=== PATIENT | female | born 1945 | race Caucasian/White ===

== ENCOUNTER 2020-05-04 00:38 | Inpatient (IN) | payer MEDICARE, BC ==
[2020-05-04 01:21] LABS: #Basophils 0.1 thou/uL (0.0-0.2); #Eosinphils 0.2 thou/uL (0.0-0.7); #Lymphocytes 1.5 thou/uL (1.20-3.40); #Monocytes 0.7 thou/uL (0.11-0.59); #Neutrophils 5.4 thou/uL (1.40-6.50); %Basophils 0.8 % (0.0-1.0); %Eosinophils 2.3 % (0.0-10.0); %Lymphocytes 18.5 % (21.0-51.0); %Monocytes 9.4 % (0.0-10.0); %Neutrophils 69.1 % (42.0-75.0); Hemoglobin 15.2 g/dL (12.0-16.0); Mean Corpuscular HGB CONC 32.7 g/dL (32.0-36.0); Mean Corpuscular Hemoglobin 31.5 pg (27.0-31.0); Mean Corpuscular Volume 96.4 fL (78.0-98.0); Mean Platelet Volume 8.8 fL (7.4-10.4); Platelet Count 195 thou/uL (130-400); RBC Distribution Width 11.4 % (11.5-14.5); Red Blood Cell (RBC) Count 4.83 mill/uL (4.20-5.40); White Blood Cell (WBC) Count 7.9 thou/uL (4.8-10.8)
[2020-05-04 01:39] LABS: ALT (SGPT) 15 U/L (8-55); AST (SGOT) 28 U/L (5-34); Albumin 4.4 g/dL (3.4-4.8); Alkaline Phosphatase 72 U/L (40-110); Anion Gap 12 mmol/L (10-20); BUN (Urea Nitrogen) 17 mg/dL (9.8-20.1); Bilirubin, Total 0.3 mg/dL (0.2-1.2); Calc. Creatinine Clearance 0 mL/min (70-130); Calcium 9.1 mg/dL (7.8-10.44); Carbon Dioxide 27 mmol/L (23-31); Chloride 103 mmol/L (98-107); Estimated GFR-MDRD 70; Globulin 3.4 g/dL (2.4-3.5); Glucose 109 mg/dL (83-110); Lipase 38 U/L (8-78); Potassium 4.8 mmol/L (3.5-5.1); Protein, Total 7.8 g/dL (6.0-8.3); Sodium 137 mmol/L (136-145)
[2020-05-04 02:04] LABS: Bilirubin Negative (Negative); Blood, Urine Negative (Negative); Clarity Turbid (Clear); Glucose, Urine (Dipstick) Normal (Negative); Ketone, Urine Negative (Negative); Leukocyte Negative Leu/uL (Negative); Nitrite Negative (Negative); Protein, Urine (Dipstick) Negative (Neg-Trace); Specific Gravity, Urine 1.018 (1.002-1.036); Urobilinogen Normal mg/dL (Less than 2)
[2020-05-04] MEDS ORDERED: Morphine 2 MG/ML SYRINGE ONE (02:07)
[2020-05-04] MEDS ORDERED: Ondansetron PF 4 MG/2 ML Vial ONE (02:07)
[2020-05-04] MEDS ORDERED: Benzocaine 20% Spray 60 ML CAN ONE (03:21)
[2020-05-04] MEDS ORDERED: Morphine 2 MG/ML VIAL SLOW IVP PRN ×2 (05:43→13:19)
[2020-05-04] MEDS ORDERED: Ondansetron PF 4 MG/2 ML Vial IVP PRN (05:44)
[2020-05-04] MEDS ORDERED: Ondansetron ODT 4 MG TAB SL PRN (05:44)
[2020-05-04] MEDS ORDERED: Sodium Chloride 0.9% 1,000 ML IV SCH (05:45)
[2020-05-04 06:09] VITALS: BMI 25.2
[2020-05-04] MEDS ORDERED: Ondansetron ODT 4 MG TAB PO PRN (07:41)
[2020-05-04] MEDS ORDERED: Acetaminophen 650 MG Suppository PR PRN (07:41)
[2020-05-04] MEDS ORDERED: Labetalol HCl 100 MG/20 ML VIAL SLOW IVP PRN (07:46)
[2020-05-04] MEDS ORDERED: Famotidine/PF 20 mg/2ml Vial SLOW IVP SCH (09:00)
--- NOTE | 2020-05-04 09:39 | CT ---
PRELIMINARY REPORT/[facility]/EMERGENCY AFTER HOURS PROCEDURE: EXAM: CT Abdomen and Pelvis with Intravenous Contrast CLINICAL HISTORY: PT STATES SHE AT DINNER AROUND 1999 AND FEELS LIKE SHE ATE TOO MUCH. PTS STATES HAVING PAIN THAT HAS INCREASINGLY GOT WORSE SINCE EATING. PT STATES THE PAIN STARTED IN EPIGASTRIC AND HAS STARTED GOING L OWER AND LOWER. PT STATES THE PAIN RADIATES A LITTLE BIT OUTWARD. TECHNIQUE: Axial computed tomography images of the abdomen and pelvis with intravenous contrast. CONTRAST: With; ISOVUE 370,100mL COMPARISON: None provided. FINDINGS: LUNG BASES: No basilar airspace consolidation or pleural effusion. LIVER: Unremarkable. GALLBLADDER AND BILE DUCTS: Unremarkable. No calcified stone. No ductal dilation. PANCREAS: Unremarkable. SPLEEN: Unremarkable. ADRENAL GLANDS: Unremarkable. KIDNEYS, URETERS, AND BLADDER: Unremarkable. No hydronephrosis or nephrolithiasis. No ureteral or bladder calculi. STOMACH AND BOWEL: Uncomplicated colonic diverticuli. Gastric lap band procedure is present in satisfactory position. Th ere are fluid-filled dilated loops of small bowel measuring upwards of 3 cm. Edematous small bowel lo op is present within the anterior midline pelvis representing transition point. Distal loops of ileum are decompressed. There is adjacent edema of mesentery. APPENDIX: The appendix is within normal limits. PERITONEUM: Minimal fluid within the cul-de-sac LYMPH NODES: No lymphadenopathy. REPRODUCTIVE: Involuted calcified fundal fibroid is present measuring 7 mm VASCULATURE: No aortic aneurysm. BONES: No fracture or suspicious osseous abnormality. ABDOMINAL WALL AND SOFT TISSUES: Unremarkable. IMPRESSION: Small bowel obstruction with point obstruction anterior midline abdomen with edematous loop of small bowel. ELECTRONICALLY SIGNED BY: Ivonne Solorzano MD May 04, 2020 2:31:04 AM CDT This report is intended for review by the ordering physician only, in accordance of law. If you recei ve this report in error, please call [facility] at [phone]. FINAL REPORT EMERGENCY AFTER HOURS CT ABDOMEN AND PELVIS WITH CONTRAST: FINDINGS/IMPRESSION: I agree with the findings and impression given in the preliminary report per [facility] physici an. There is distention of small bowel loops with an apparent transition point in the midline of the abdo men. This may be secondary to complete or partial small bowel obstruction. POS: EAA
[2020-05-04] MEDS: Dextrose 5 %-0.45 % NaCl 1,000 ML IV SCH ×3 (09:42→21:00)
[2020-05-04] MEDS: Labetalol HCl 100 MG/20 ML VIAL SLOW IVP SCH (09:42)
--- NOTE | 2020-05-04 11:37 | PDOC.HHP ---
Hospitalist HPI - History of Present Illness Abd pain History of Present Illness: 75 yof presents for epigastric and periumbilical pain starting yesterday evening after eating. She had no symptoms before eating dinner. Abd pain mainly over periumbilical and epigastric region. Moderate in intensity. No relieving factor. Worse with eating. Denies n/v/d, CP, fever, or urinary symptoms. No similar symptoms in the past. No recent travel. Hospitalist ROS - Review of Systems Constitutional: denies: fever, chills, sweats, weakness, malaise, other Eyes: denies: pain, vision change, conjunctivae inflammation, eyelid inflammation, redness, other Respiratory: denies: cough, dry, shortness of breath, hemoptysis, SOB with excertion, pleuritic pain, sputum, wheezing, other Cardiovascular: denies: chest pain, palpitations, orthopnea, paroxysmal noc. dyspnea, edema, light headedness, other Gastrointestinal: reports: abdominal pain. denies: nausea, vomiting, diarrhea, constipation, melena, hematochezia, other Genitourinary: denies: dysuria, frequency, incontinence, hematuria, retention, other Neurological: denies: weakness, numbness, incoordination, change in speech, confusion, seizures, other All other systems reviewed; all pertinent +/- noted in HPI/Subj - Medication Medications: HOME MEDS: Synthroid oral Sat May 04, 2020 00:59 SMILEY Lopez Jordan tablet : Strength - 88 mcg : ORAL Patient Dose: 1 tab(s) Oral once a day. metoprolol succinate Sat May 04, 2020 01:00 SMILEY Lopez Jordan tablet extended release 24 hr : Strength - 50 mg : ORAL Patient Dose: 1 tab(s) Oral once a day. buPROPion HCl Sat May 04, 2020 01:01 SMILEY Lopez Jordan tablet extended release 24 hr : Strength - 150 mg : ORAL Patient Dose: 1 tab(s) Oral once a day. Active Medications Generic Name Dose Route Start Last Admin Trade Name Freq PRN Reason Stop Dose Admin Dextrose/Sodium Chloride 1,000 mls @ 150 mls/hr 05/04/20 07:45 05/04/20 09:42 D5 1/2 Ns IV 1,000 mls .Q6H40M SCOTT Administration Labetalol HCl 10 mg 05/04/20 09:00 05/04/20 09:42 Normodyne SLOW IVP 10 mg BID SCOTT Administration Morphine Sulfate 2 mg 05/04/20 05:43 05/04/20 05:53 Morphine SLOW IVP 05/04/20 17:38 2 mg Q4H PRN Administration Pain Ondansetron HCl 4 mg 05/04/20 05:44 05/04/20 09:56 Zofran IVP 05/04/20 17:38 4 mg Q6H PRN Administration Nausea/Vomiting Pantoprazole Sodium 40 mg 05/04/20 09:45 05/04/20 09:59 Protonix PO 05/04/20 12:00 Not Given NOW [facility] Hospitalist History - Past Medical History Other Medical History: PAST MEDICAL HISTORY Tachyarrhythmia HTN Anxiety Hypothyroidism FEMALE SURGICAL HISTORY TONSILLECTOMY LAPBAND 2006 SOCIAL HISTORY Patient drinks every day, less than 5 drinks per day, Patient denies drug use, Patient is a former tobacco user, smoked cigarettes, Patient quit smoking more than 10 years ago. Smoking Status-Former Full code. DPOA - spouse FAMILY HISTORY No GI malignancy. Father had DC. No Premature CAD - Exam General Appearance: awake alert General - other findings: Mild distress due to abd pain Eye: PERRL, anicteric sclera ENT: normocephalic atraumatic, no oropharyngeal lesions, moist mucosa Neck: supple, symmetric, no JVD Heart: RRR, no gallops, no rubs, normal peripheral pulses Respiratory: no wheezes, no rales, no ronchi, normal chest expansion Gastrointestinal: soft, non-distended, no guarding, no rigidity, tender to palpation (periumbilical) Gastrointestinal - other findings: hyperactive BS Extremities: no cyanosis, no clubbing, no edema Skin: normal turgor, no lesions Neurological: normal sensation to touch, no weakness, no focal deficits Musculoskeletal: normal tone, normal strength Psychiatric: normal affect, A&O x 3 Hospitalist Results - Labs Result Diagrams: 05/04/20 01:10 05/04/20 01:10 Lab results: WBC 7.9 thou/uL (4.8-10.8) 05/04/20 01:10 Hgb 15.2 g/dL (12.0-16.0) 05/04/20 01:10 Hct 46.5 % (36.0-47.0) 05/04/20 01:10 MCV 96.4 fL (78.0-98.0) 05/04/20 01:10 Plt Count 195 thou/uL (130-400) 05/04/20 01:10 Neutrophils % 69.1 % (42.0-75.0) 05/04/20 01:10 Sodium 137 mmol/L (136-145) 05/04/20 01:10 Potassium 4.8 mmol/L (3.5-5.1) 05/04/20 01:10 Chloride 103 mmol/L (98-107) 05/04/20 01:10 Carbon Dioxide 27 mmol/L (23-31) 05/04/20 01:10 BUN 17 mg/dL (9.8-20.1) 05/04/20 01:10 Creatinine 0.80 mg/dL (0.6-1.1) 05/04/20 01:10 Glucose 109 mg/dL (83-110) 05/04/20 01:10 Calcium 9.1 mg/dL (7.8-10.44) 05/04/20 01:10 Total Bilirubin 0.3 mg/dL (0.2-1.2) 05/04/20 01:10 AST 28 U/L (5-34) 05/04/20 01:10 ALT 15 U/L (8-55) 05/04/20 01:10 Alkaline Phosphatase 72 U/L (40-110) 05/04/20 01:10 Serum Total Protein 7.8 g/dL (6.0-8.3) 05/04/20 01:10 Albumin 4.4 g/dL (3.4-4.8) 05/04/20 01:10 Lipase 38 U/L (8-78) 05/04/20 01:10 Urine Ketones Negative mg/dL (Negative) 05/04/20 01:14 Urine Blood Negative (Negative) 05/04/20 01:14 Urine Nitrite Negative (Negative) 05/04/20 01:14 Ur Leukocyte Esterase Negative Jaida/uL (Negative) 05/04/20 01:14 - Radiology Interpretation CT scan - abdomen Status: image reviewed by me Additional Comment: Small bowel obstruction with transition point in anterior midline abd. Hospitalist H&P A/P - Plan Plan: SBO Tachyarrythmia h/o Lap band Chronic alcohol use HTN Anxiety Hypothyroidism PLAN: NG tube suction NPO IVF IV Morphine for pain control Gen surg consult Hold PO meds IV Labetalol 10 mg BID until tolerating PO Ambulate Monitor electrolytes resume Levothyroxine and anxiety meds when tolerating PO Add Thiamine/Folic acid/MVM
[2020-05-04] MEDS ORDERED: Iopamidol-370 76% 500 ML 1 ML ONE (13:20)
[2020-05-04] MEDS ORDERED: MD-Gastroview 120 ML BOT ONE (13:30)
[2020-05-04] MEDS: Morphine 2 MG/ML VIAL SLOW IVP PRN ×4 (15:04→22:10)
--- NOTE | 2020-05-04 15:58 | RAD ---
EXAM: Small bowel follow-through HISTORY: Small bowel obstruction COMPARISON: None FINDINGS: A Gastrografin small bowel follow-through was performed. The small bowel loops are dilated. There is significant delay in passage of the contrast through the small bowel loops and no contrast was seen in the right colon at 5 hours. IMPRESSION: Dilated loops of small bowel without passage in the right colon may be consistent with a complete small bowel obstruction.
[2020-05-04 18:23] LABS: Lactic Acid 1.9 mmol/L (0.5-2.2)
--- NOTE | 2020-05-04 20:18 | CON ---
DATE OF CONSULTATION: 05/04/2020 REQUESTING PHYSICIAN: Juany Franco MD. HISTORY OF PRESENT ILLNESS: Ms. Perkins is a 75-year-old woman who was in her usual state of health up until yesterday evening when she developed a sudden onset epigastric to periumbilical abdominal pain shortly after eating. The pain started at approximately 1900 hours and intensified by 2200 hours. As a result, She presented to the emergency department near midnight after failure of the pain to resolve with [id number] remedies. The patient endorses no nausea or vomiting. She had a bowel movement earlier in the evening prior to onset of abdominal pain. She denies any fevers or chills. She has never experienced pain like this in the past. She, however, recalls that after overeating since her weight loss surgery she will experience occasional reflux, but never pain as intense as what brought her to the emergency department. PAST MEDICAL HISTORY: Significant for: 1. Hypothyroidism. 2. Essential hypertension. 3. Chronic anxiety disorder. SURGICAL HISTORY: Pertinent for: 1. Childhood tonsillectomy and adenoidectomy. 2. Lap band in 2006 for weight loss. SOCIAL HISTORY: She lives independently. She denies any cigarette smoking or illicit drug abuse. She admits to occasional intake of ethanol in moderate amount. FAMILY HISTORY: Noncontributory for this patient's age. PREHOSPITALIZATION MEDICATIONS: Includes: 1. Bupropion 150 mg p.o. daily. 2. Levothyroxine 88 mcg p.o. daily. 3. Metoprolol succinate 50 mg p.o. daily. ALLERGIES: THE PATIENT DENIES ANY KNOWN DRUG ALLERGIES. REVIEW OF SYSTEMS: Ten-point review of systems essentially unremarkable except as stated in past medical history and chief complaint. PHYSICAL EXAMINATION: GENERAL: A 75-year-old normally developed woman who is otherwise coherent and interactive, appears stated age. The patient is alert and oriented x3, appears to be in no acute distress at the time of my evaluation. VITAL SIGNS: This morning include blood pressure 154/85, pulse 65, respiratory rate is 16, temperature 97.5 degrees Fahrenheit, and oxygen saturation 94% on room air. HEENT: Normocephalic and atraumatic. She has no jugular venous distention noted. HEART: Reveals regular rate and rhythm. No murmurs or gallops auscultated. LUNGS: Clear to auscultation bilaterally. Her breathing is regular and nonlabored. ABDOMEN: Soft with diffuse tenderness to palpation. She has no rebound tenderness present. She does, however, have hyperactive bowel sounds auscultated in all 4 quadrants. Liver and spleen otherwise nonpalpable below costal margin. NEUROLOGIC: No focal deficits present. LABORATORY FINDINGS: Today include a CBC with 7900 white blood cells, hemoglobin and hematocrit 15.2 and 46.5 respectively, and platelet count is 195,000. Metabolic profile: Sodium 137, potassium 4.8, chloride is 103, bicarb is 27, BUN 17, creatinine 0.80, and glucose is 109. Total bilirubin 0.3, AST and ALT normal at 28 and 15 respectively, and serum lipase is also normal at 38. I have personally reviewed the CT scan of the abdomen and pelvis, which was obtained early this morning, which confirms an uncomplicated gastric lap band procedure. The band appears to be in satisfactory position. There are fluid-filled dilated loops of small bowel, transition point appears to be in the distal jejunum/proximal ileum as it appears the distal ileal loops decompressed. There is, however, gas in the colon and rectum. IMPRESSIONS: 1. Acute abdominal pain with radiographic evidence of partial small-bowel obstruction. 2. Status post lap band procedure with no apparent complications. PLAN: Plan includes small-bowel follow-through to better define the anatomy of the obstruction. There is no acute surgical indication for this patient at this time; however, for failure of conservative management, we will consider diagnostic laparoscopy especially if indicated by the small-bowel follow-through or clinical presentation. Above findings and plan have been discussed with the patient at bedside and with her daughter who called in during my visit. They both indicated understanding information given. I have answered their questions. Thank you again, Dr. Franco, for allowing me the opportunity to participate in care of this patient. Job ID: [id number]
[2020-05-04] MEDS ORDERED: Enoxaparin Sodium 40 MG/0.4 ML SYRINGE SC SCH (21:00)
[2020-05-04] MEDS: Ondansetron PF 4 MG/2 ML Vial IVP PRN (22:16)
--- NOTE | 2020-05-05 03:51 | PRG ---
DATE OF SERVICE: 05/04/2020 SUBJECTIVE: The patient was seen this evening during rounds. She was sitting up in bed, resting comfortably, asleep with no signs of acute distress. NG tube had bilious output in canister. She is status post small bowel follow-through with what appears to be a complete small bowel obstruction. Her pain is well controlled now. OBJECTIVE: VITAL SIGNS: Temperature 98, pulse 86, respirations 16, oxygen saturation 92% on room air, blood pressure 121/78. GENERAL: Well-appearing elderly female, sitting up in bed, asleep with no signs of acute distress. PULMONARY: Equal chest rise and fall. No signs of acute respiratory distress. ASSESSMENT: 1. Small bowel obstruction, now with improving symptoms. 2. History of hypertension, hypothyroidism, depression, and status post lap band surgery. PLAN: Continue NG tube to low intermittent wall suction. Continue the patient on IV fluids. Dr. Quinn to speak with Dr. Minor tomorrow for possibly taking over this case as the patient is requesting removal of her lap band. Trauma Surgery will re-evaluate in the morning. We will also complete an abdominal x-ray to see if the contrast from the small bowel follow-through has eventually made it into the colon overnight. Job ID: [id number]
[2020-05-05] MEDS: Dextrose 5 %-0.45 % NaCl 1,000 ML IV SCH (04:00)
[2020-05-05] MEDS: Morphine 2 MG/ML VIAL SLOW IVP PRN ×3 (04:18→19:13)
[2020-05-05] MEDS: Ondansetron PF 4 MG/2 ML Vial IVP PRN (04:22)
[2020-05-05 05:38] LABS: #Lymphocytes 0.8 thou/uL (1.20-3.40); #Monocytes 1.2 thou/uL (0.11-0.59); #Neutrophils 13.7 thou/uL (1.40-6.50); %Basophils 0.1 % (0.0-1.0); %Eosinophils 0.1 % (0.0-10.0); %Lymphocytes 5.2 % (21.0-51.0); %Monocytes 7.9 % (0.0-10.0); %Neutrophils 86.8 % (42.0-75.0); Mean Corpuscular HGB CONC 32.6 g/dL (32.0-36.0); Mean Corpuscular Hemoglobin 32.3 pg (27.0-31.0); Mean Corpuscular Volume 98.9 fL (78.0-98.0); Mean Platelet Volume 8.4 fL (7.4-10.4); Platelet Count 246 thou/uL (130-400); RBC Distribution Width 11.6 % (11.5-14.5); Red Blood Cell (RBC) Count 5.57 mill/uL (4.20-5.40); White Blood Cell (WBC) Count 15.8 thou/uL (4.8-10.8)
[2020-05-05 05:59] LABS: Lactic Acid 1.8 mmol/L (0.5-2.2)
[2020-05-05] MEDS ORDERED: Levothyroxine Sodium 88 MCG TAB PO SCH (06:00)
[2020-05-05 06:02] LABS: ALT (SGPT) 10 U/L (8-55); AST (SGOT) 12 U/L (5-34); Albumin 3.8 g/dL (3.4-4.8); Alkaline Phosphatase 65 U/L (40-110); Anion Gap 13 mmol/L (10-20); BUN (Urea Nitrogen) 20 mg/dL (9.8-20.1); Bilirubin, Total 0.5 mg/dL (0.2-1.2); Calc. Creatinine Clearance 66 mL/min (70-130); Calcium 8.7 mg/dL (7.8-10.44); Carbon Dioxide 24 mmol/L (23-31); Chloride 105 mmol/L (98-107); Estimated GFR-MDRD 69; Globulin 2.8 g/dL (2.4-3.5); Glucose 166 mg/dL (83-110); Magnesium 2.2 mg/dL (1.6-2.6); Phosphorus 4.2 mg/dL (2.3-4.7); Potassium 3.8 mmol/L (3.5-5.1); Protein, Total 6.6 g/dL (6.0-8.3); Sodium 138 mmol/L (136-145)
[2020-05-05] MEDS ORDERED: Sodium Chloride 0.9% 1,000 ML IV SCH (07:45)
[2020-05-05] MEDS: D5 1/2 NS w/10 mEq KCl 1,000 ML/1,000 ML BAG IV SCH ×3 (08:31→22:26)
[2020-05-05] MEDS: Pantoprazole 40 MG VIAL IVP SCH ×2 (08:33→20:10)
[2020-05-05] MEDS: Multivit, Therapeutic 1 TAB PO SCH (08:33)
[2020-05-05] MEDS: Labetalol HCl 100 MG/20 ML VIAL SLOW IVP SCH ×2 (08:34→20:10)
[2020-05-05] MEDS ORDERED: Bupropion 150 MG XL TAB PO SCH (09:00)
[2020-05-05] MEDS ORDERED: Thiamine 100 MG TAB PO SCH (09:00)
[2020-05-05] MEDS ORDERED: Folic Acid 1 MG TAB PO SCH (09:00)
--- NOTE | 2020-05-05 09:51 | RAD ---
EXAM: Single view of the abdomen HISTORY: Small bowel obstruction COMPARISON: Small bowel follow-through 05/04/2020 FINDINGS: Single view of the abdomen shows contrast retained within dilated loops of small bowel. Thi s does not appear to have yet reached the colon.. No suspicious calcifications are seen. The bones are unremarkable. A gastric band is seen in the upper abdomen. IMPRESSION: Small bowel obstruction
[2020-05-05] MEDS ORDERED: Lidocaine 1% PF 5 ML VIAL ONE (09:56)
[2020-05-05] MEDS ORDERED: PHENYLEPHRINE-NS 100 MCG/ML 10 ML SYRINGE ONE (09:56)
[2020-05-05] MEDS ORDERED: PROPOFOL 200 MG/20 ML VIAL ONE (09:56)
[2020-05-05] MEDS ORDERED: Succinylcholine Chloride 20 MG/ML 10 ml SYRINGE FS ONE (09:56)
[2020-05-05] MEDS ORDERED: Rocuronium Bromide 10 MG/ML (10ML VIAL) ONE (09:56)
[2020-05-05] MEDS ORDERED: Glycopyrrolate 0.2 MG/ML 5 ML SYRINGE ONE (09:56)
--- NOTE | 2020-05-05 10:11 | PDOC.GSCN ---
Surgery Consult: HPI - Consult details Date: 05/05/20 Time: 10:11 Reason for consult: abdominal pain History of present illness: 75yo female with a history of obesity and laparoscopic adjustable gastric band placement presents with one day history of abdominal pain. Onset of pain was yesterday, mid-morning. Pain is described as "bloating" and "sharp" consistent with colic like pain. Denies nausea, vomiting, or change in bowel habits. Denies previsous episodes. Band placed in [place] 2006. Pre-op weight 180lbs, now around 150lbs. Complicated by severe reflux symptoms, so band has been unfilled since soon after placement. Admitted by hospitalist service and seen by EGS. - Review of Systems Constitutional: denies: fever, chills, sweats, weakness, malaise, other Eyes: denies: pain, vision change, conjunctivae inflammation, eyelid inflammation, redness, other Respiratory: denies: cough, dry, shortness of breath, hemoptysis, SOB with excertion, pleuritic pain, sputum, wheezing, other Cardiovascular: history of tachycardia Gastrointestinal: positive per HPI Genitourinary: denies: dysuria, frequency, incontinence, hematuria, retention, other Neurological: denies: weakness, numbness, incoordination, change in speech, confusion, seizures, other All other systems reviewed; all pertinent +/- noted in HPI/Subj - Medication HOME MEDS: Synthroid oral Sat May 04, 2020 00:59 SMILEY Lopez Jordan tablet : Strength - 88 mcg : ORAL Patient Dose: 1 tab(s) Oral once a day. metoprolol succinate [facility] May 04, 2020 01:00 SMILEY Lopez Jordan tablet extended release 24 hr : Strength - 50 mg : ORAL Patient Dose: 1 tab(s) Oral once a day. buPROPion HCl [facility] May 04, 2020 01:01 SMILEY Lopez Jordan tablet extended release 24 hr : Strength - 150 mg : ORAL Patient Dose: 1 tab(s) Oral once a day. - Past Medical History Tachyarrhythmia HTN Anxiety Hypothyroidism Laparoscopic adjustable gastric band 2006 ([place]) tonsillectomy laparoscopic tubal ligation SOCIAL HISTORY Patient drinks every day, less than 5 drinks per day, Patient denies drug use, Patient is a former tobacco user, smoked cigarettes, Patient quit smoking more than 10 years ago. Smoking Status-Former Full code. DPOA - spouse FAMILY HISTORY paternal heart disease (AMI) - Exam General Appearance: awake alert, no acute distress Eye: PERRL, anicteric sclera ENT: normocephalic atraumatic, no oropharyngeal lesions, moist mucosa Neck: supple, symmetric, no JVD Heart: RRR, no gallops, no rubs, normal peripheral pulses Respiratory: no wheezes, no rales, no ronchi, normal chest expansion Gastrointestinal: soft, moderately-distended, no guarding, no rigidity, tender to palpation (mild), well healed laparoscopic incisions, band port LUQ Extremities: no cyanosis, no clubbing, no edema Skin: normal turgor, no lesions Neurological: normal sensation to touch, no weakness, no focal deficits Musculoskeletal: normal tone, normal strength Psychiatric: normal affect, A&O x 3 Surgery Consult: Exam - Vital signs Vital signs: Vital Signs - Most Recent Temp Pulse Resp BP Pulse Ox 97.9 F 76 18 129/78 94 L 05/05/20 07:38 05/05/20 08:34 05/05/20 07:38 05/05/20 08:34 05/05/20 07:38 Surgery Consult: Meds - Medications Medications: Current Medications Acetaminophen (Tylenol) 650 mg MA Q4H PRN PRN Reason: Headache/Fever/Mild Pain (1-3) Acetaminophen (Tylenol) 650 mg PO Q4H PRN PRN Reason: Headache/Fever/Mild Pain (1-3) Hydrocodone Bitart/Acetaminophen ([place] 5/325) 1 tab PO Q6H PRN PRN Reason: Moderate Pain (4-6) Bupropion HCl (Wellbutrin Xl) 150 mg PO DAILY [facility] Last Admin: 05/05/20 08:32 Dose: 150 mg Enoxaparin Sodium (Lovenox) 40 mg SC 2100 [facility] Last Admin: 05/04/20 20:07 Dose: 40 mg Folic Acid (Folvite) 1 mg PO DAILY [facility] Last Admin: 05/05/20 08:33 Dose: 1 mg Potassium Chloride/Dextrose/Sod Cl (D5 1/2 Ns W/10 Meq Kcl) 1,000 ml in 1,000 mls @ 150 mls/hr IV .Q6H40M [facility] Last Admin: 05/05/20 08:31 Dose: 1,000 mls Labetalol HCl (Normodyne) 10 mg SLOW IVP BID [facility] Last Admin: 05/05/20 08:34 Dose: 10 mg Labetalol HCl (Normodyne) 10 mg SLOW IVP Q4H PRN PRN Reason: Systolic BP > 180 Morphine Sulfate (Morphine) 2 mg SLOW IVP Q2H PRN PRN Reason: Severe Pain (7-10) Stop: 05/06/20 13:20 Last Admin: 05/05/20 07:34 Dose: 2 mg Multivitamins (Theragran) 1 tab PO DAILY [facility] Last Admin: 05/05/20 08:33 Dose: 1 tab Ondansetron HCl (Zofran Odt) 4 mg PO Q6H PRN PRN Reason: Nausea/Vomiting Ondansetron HCl (Zofran) 4 mg IVP Q6H PRN PRN Reason: Nausea/Vomiting Last Admin: 05/05/20 04:22 Dose: 4 mg Pantoprazole Sodium (Protonix) 40 mg IVP Q12HR [facility] Last Admin: 05/05/20 08:33 Dose: 40 mg Sodium Chloride (Flush - Normal Saline) 10 ml IVF PRN PRN PRN Reason: Saline Flush Thiamine HCl (Thiamine) 100 mg PO DAILY [facility] Last Admin: 05/05/20 08:33 Dose: 100 mg - Allergies Allergies/Adverse Reactions: Allergies Allergy/AdvReac Type Severity Reaction Status Date / Time No Known Drug Allergies Allergy Verified 05/04/20 06:03 Surgery Consult: Results - Labs Result Diagrams: 05/05/20 05:21 05/05/20 05:21 Lab results: Laboratory Results WBC 15.8 thou/uL (4.8-10.8) H 05/05/20 05:21 RBC 5.57 mill/uL (4.20-5.40) H 05/05/20 05:21 Hgb 18.0 g/dL (12.0-16.0) H 05/05/20 05:21 Hct 55.0 % (36.0-47.0) H 05/05/20 05:21 MCV 98.9 fL (78.0-98.0) H 05/05/20 05:21 MCH 32.3 pg (27.0-31.0) H 05/05/20 05:21 MCHC 32.6 g/dL (32.0-36.0) 05/05/20 05:21 RDW 11.6 % (11.5-14.5) 05/05/20 05:21 Plt Count 246 thou/uL (130-400) 05/05/20 05:21 MPV 8.4 fL (7.4-10.4) 05/05/20 05:21 Neutrophils % 86.8 % (42.0-75.0) H 05/05/20 05:21 Lymphocytes % 5.2 % (21.0-51.0) L 05/05/20 05:21 Monocytes % 7.9 % (0.0-10.0) 05/05/20 05:21 Eosinophils % 0.1 % (0.0-10.0) 05/05/20 05:21 Basophils % 0.1 % (0.0-1.0) 05/05/20 05:21 Neutrophils # 13.7 thou/uL (1.40-6.50) H 05/05/20 05:21 Lymphocytes # 0.8 thou/uL (1.20-3.40) L 05/05/20 05:21 Monocytes # 1.2 thou/uL (0.11-0.59) H 05/05/20 05:21 Eosinophils # 0.0 thou/uL (0.0-0.7) 05/05/20 05:21 Basophils # 0.0 thou/uL (0.0-0.2) 05/05/20 05:21 Sodium 138 mmol/L (136-145) 05/05/20 05:21 Potassium 3.8 mmol/L (3.5-5.1) 05/05/20 05:21 Chloride 105 mmol/L (98-107) 05/05/20 05:21 Carbon Dioxide 24 mmol/L (23-31) 05/05/20 05:21 Anion Gap 13 mmol/L (10-20) 05/05/20 05:21 BUN 20 mg/dL (9.8-20.1) 05/05/20 05:21 Creatinine 0.81 mg/dL (0.6-1.1) 05/05/20 05:21 Estimated GFR (MDRD) 69 05/05/20 05:21 Glucose 166 mg/dL (83-110) H 05/05/20 05:21 Lactic Acid 1.8 mmol/L (0.5-2.2) 05/05/20 05:21 Calcium 8.7 mg/dL (7.8-10.44) 05/05/20 05:21 Phosphorus 4.2 mg/dL (2.3-4.7) 05/05/20 05:21 Magnesium 2.2 mg/dL (1.6-2.6) 05/05/20 05:21 Total Bilirubin 0.5 mg/dL (0.2-1.2) 05/05/20 05:21 AST 12 U/L (5-34) 05/05/20 05:21 ALT 10 U/L (8-55) 05/05/20 05:21 Alkaline Phosphatase 65 U/L (40-110) 05/05/20 05:21 Serum Total Protein 6.6 g/dL (6.0-8.3) 05/05/20 05:21 Albumin 3.8 g/dL (3.4-4.8) 05/05/20 05:21 Globulin 2.8 g/dL (2.4-3.5) 05/05/20 05:21 Albumin/Globulin Ratio 1.4 g/dL (1.2-2.2) 05/05/20 05:21 Lipase 38 U/L (8-78) 05/04/20 01:10 Urine Color Light-Yellow (Yellow) 05/04/20 01:14 Urine Clarity Turbid (Clear) A 05/04/20 01:14 Urine pH 7.0 (5.0-9.0) 05/04/20 01:14 Ur Specific [place] 1.018 (1.002-1.036) 05/04/20 01:14 Urine Protein Negative mg/dL (Neg-Trace) 05/04/20 01:14 Urine Glucose (UA) Normal mg/dL (Negative) 05/04/20 01:14 Urine Ketones Negative mg/dL (Negative) 05/04/20 01:14 Urine Blood Negative (Negative) 05/04/20 01:14 Urine Nitrite Negative (Negative) 05/04/20 01:14 Urine Bilirubin Negative (Negative) 05/04/20 01:14 Urine Urobilinogen Normal mg/dL (Less than 2) 05/04/20 01:14 Ur Leukocyte Esterase Negative Jaida/uL (Negative) 05/04/20 01:14 - Radiology Interpretation CT scan - abdomen Status: image reviewed by me Additional comments: UGI and follow up KUB reviewed by me. Demonstrates dilated small bowel loops without passage of contrast into colon concerning for high grade obstruction vs. closed loop obstruction. Surgery Consult: A/P - Problem (1) Small bowel obstruction Current Visit: Yes Code(s): K56.609 - UNSP INTESTNL OBST, UNSP TO PARTIAL VERSUS COMPLETE OBST Status: Acute (2) History of adjustable gastric banding Current Visit: Yes Code(s): Z98.84 - BARIATRIC SURGERY STATUS Status: Acute - Plan Plan: 75yo female with small bowel obstruction due to adhesions vs. gastric band tubing. Initially managed conservatively, but follow up imaging shows no progress in the face of increasing leukocytosis. Will proceed with diagnostic laparoscopy and likely removal of gastric band. The relative risks and benefits of this procedure was discussed in detail with the patient, and her daughter, specifically addressing the risk of bowel perforation and the need to convert to an open procedure. Informed consent was obtained.
--- NOTE | 2020-05-05 11:11 | PDOC.EVN ---
Event Note - Event Note Event Note: Care signed off by Dr. Quinn to Dr. Minor.
[2020-05-05] MEDS: HYDROcodone/Acetaminophen 5/325 mg Tablet PO PRN ×2 (11:47→20:09)
--- NOTE | 2020-05-05 11:59 | PDOC.HOSPP ---
- Subjective Encounter Date: 05/05/20 Encounter Time: 10:00 Subjective: Patient seen and examined for SBO. Intermittent crampy Abd pain. No new complaints. No overnight events - Objective Vital Signs & Weight: Vital Signs (12 hours) Temp Pulse Resp BP BP Pulse Ox 05/05/20 11:19 97.8 F 72 16 133/75 94 L 05/05/20 08:34 76 129/78 05/05/20 07:38 97.9 F 76 18 129/78 94 L 05/05/20 04:14 97.7 F 76 18 147/87 H 94 L 05/05/20 00:00 98.0 F 86 16 121/78 92 L Weight Weight 152 lb I&O: 05/04/20 05/05/20 05/06/20 06:59 06:59 06:59 Intake Total 2700 Output Total 2300 Balance 400 Result Diagrams: 05/05/20 05:21 05/05/20 05:21 Radiology Reviewed by me: Yes (AUB - SBO) Hospitalist ROS - Review of Systems Respiratory: denies: cough, dry, shortness of breath, hemoptysis, SOB with excertion, pleuritic pain, sputum, wheezing, other Cardiovascular: denies: chest pain, palpitations, orthopnea, paroxysmal noc. dyspnea, edema, light headedness, other - Medication Medications: Active Medications Generic Name Dose Route Start Last Admin Trade Name Freq PRN Reason Stop Dose Admin Hydrocodone Bitart/Acetaminophen 1 tab 05/04/20 13:19 05/05/20 11:47 [place] 5/325 PO 1 tab Q6H PRN Administration Moderate Pain (4-6) Potassium Chloride/Dextrose/Sod Cl 1,000 ml in 1,000 mls @ 150 mls/hr 06:15 05/05/20 08:31 D5 1/2 Ns W/10 Meq Kcl IV 1,000 mls .Q6H40M SCOTT Administration Labetalol HCl 10 mg 05/04/20 09:00 05/05/20 08:34 Normodyne SLOW IVP 10 mg BID SCOTT Administration Morphine Sulfate 2 mg 05/04/20 14:39 05/05/20 07:34 Morphine SLOW IVP 05/06/20 13:20 2 mg Q2H PRN Administration Severe Pain (7-10) Multivitamins 1 tab 05/05/20 09:00 05/05/20 08:33 Theragran PO 1 tab DAILY SCOTT Administration Ondansetron HCl 4 mg 05/04/20 07:41 05/05/20 04:22 Zofran IVP 4 mg Q6H PRN Administration Nausea/Vomiting Pantoprazole Sodium 40 mg 05/05/20 09:00 05/05/20 08:33 Protonix IVP 40 mg Q12HR SCOTT Administration - Exam General Appearance: NAD General - other findings: NG tube + Neck: supple, no JVD Heart: RRR, no gallops Respiratory: no wheezes, no ronchi Gastrointestinal: soft, no guarding, no rigidity, tender to palpation ( generalized) Gastrointestinal - other findings: BS + Extremities: no cyanosis Hosp A/P - Plan DVT proph w/lovenox, DVT proph w/SCDs SBO -s/p NGT Tachyarrythmia h/o Lap band Chronic alcohol use HTN Anxiety Hypothyroidism PLAN: NPO Cont NG tube suction IVF - change to D5 1/2 NS with KCL Cont IV Morphine for pain control Gen surg input appreciated Laparoscopy today Hold all PO meds Change PPI to IV Cont IV Labetalol 10 mg BID until tolerating PO Ambulate AM labs Resume PO meds when tolerating PO Add IV MVM
[2020-05-05] MEDS ORDERED: Morphine 4 MG/ML VIAL ONE (13:52)
[2020-05-05] MEDS ORDERED: Lidocaine 1% w/Epinephrine 1:100K 20 ML VIAL ONE (14:06)
[2020-05-05] MEDS ORDERED: Bupivacaine 0.25% HCL 30 ML VIAL ONE (14:06)
[2020-05-05] MEDS ORDERED: Fentanyl 100 MCG/2 ML VIAL ONE ×2 (14:17→17:21)
[2020-05-05] MEDS ORDERED: Promethazine HCl 25 MG/ML VIAL SLOW IVP PRN (17:31)
[2020-05-05] MEDS ORDERED: Ondansetron HCl/PF 4 MG/2 ML Vial IVP PRN (17:31)
[2020-05-05] MEDS ORDERED: Promethazine HCl 25 MG/ML VIAL IM PRN (17:31)
[2020-05-05] MEDS ORDERED: Ondansetron PF 4 MG/2 ML Vial ONE (17:33)
[2020-05-05] MEDS ORDERED: Multivit, Adult Inj 10 ML VIAL IV SCH ×2 (21:00)
[2020-05-06] MEDS: Acetaminophen 325 MG TAB PO PRN ×2 (00:38→04:16)
[2020-05-06] MEDS: D5 1/2 NS w/10 mEq KCl 1,000 ML/1,000 ML BAG IV SCH ×3 (04:24→12:12)
[2020-05-06 05:09] LABS: #Lymphocytes 0.9 thou/uL (1.20-3.40); #Monocytes 1.1 thou/uL (0.11-0.59); #Neutrophils 10.2 thou/uL (1.40-6.50); %Basophils 0.1 % (0.0-1.0); %Eosinophils 0.1 % (0.0-10.0); %Lymphocytes 7.4 % (21.0-51.0); %Monocytes 8.9 % (0.0-10.0); %Neutrophils 83.5 % (42.0-75.0); Hemoglobin 15.8 g/dL (12.0-16.0); Mean Corpuscular HGB CONC 31.4 g/dL (32.0-36.0); Mean Corpuscular Hemoglobin 31.3 pg (27.0-31.0); Mean Corpuscular Volume 99.6 fL (78.0-98.0); Mean Platelet Volume 8.8 fL (7.4-10.4); Platelet Count 200 thou/uL (130-400); RBC Distribution Width 11.7 % (11.5-14.5); Red Blood Cell (RBC) Count 5.05 mill/uL (4.20-5.40); White Blood Cell (WBC) Count 12.3 thou/uL (4.8-10.8)
[2020-05-06 06:24] LABS: ALT (SGPT) 37 U/L (8-55); AST (SGOT) 36 U/L (5-34); Albumin 3.3 g/dL (3.4-4.8); Alkaline Phosphatase 55 U/L (40-110); Anion Gap 13 mmol/L (10-20); BUN (Urea Nitrogen) 20 mg/dL (9.8-20.1); Bilirubin, Total 0.6 mg/dL (0.2-1.2); Calc. Creatinine Clearance 73 mL/min (70-130); Calcium 8.1 mg/dL (7.8-10.44); Carbon Dioxide 20 mmol/L (23-31); Chloride 105 mmol/L (98-107); Estimated GFR-MDRD 77; Globulin 2.6 g/dL (2.4-3.5); Glucose 124 mg/dL (83-110); Magnesium 1.9 mg/dL (1.6-2.6); Phosphorus 3.3 mg/dL (2.3-4.7); Potassium 4.3 mmol/L (3.5-5.1); Protein, Total 5.9 g/dL (6.0-8.3); Sodium 134 mmol/L (136-145)
[2020-05-06] MEDS: Multivit, Therapeutic 1 TAB PO SCH (08:37)
[2020-05-06] MEDS: Pantoprazole 40 MG VIAL IVP SCH (08:37)
[2020-05-06] MEDS: Polyethylene Glycol 3350 17 GM Packet PO SCH (08:37)
[2020-05-06] MEDS: Labetalol HCl 100 MG/20 ML VIAL SLOW IVP SCH (08:38)
[2020-05-06] MEDS: HYDROcodone/Acetaminophen 5/325 mg Tablet PO PRN ×2 (08:50→19:31)
--- NOTE | 2020-05-06 09:23 | PDOC.GSOPN ---
General Surgery Procedure Note - Operative Note Date: 05/05/20 Time: 17:20 Pre-op diagnosis: Small bowel obstruction; mechanical complication related to adjustable gastric band Post-op diagnosis: same - Description of Procedure Details: DATE OF SURGERY: May 05, 2020 SURGEON: Guillermo Minor MD PREOPERATIVE DIAGNOSIS: 1. Small bowel obstruction 2. Mechanical complication of adjustable gastric band POSTOPERATIVE DIAGNOSIS: 1. Small bowel obstruction 2. Mechanical complication of adjustable gastric band PROCEDURE: 1 Laparoscopic removal of adjustable gastric band 2. Small bowel resection 3. Laparoscopic adhesiolysis INDICATIONS: This is a 75-year-old woman who presented with a small bowel obstruction. She had previously underwent adjustable gastric banding. The patient had had previous complications with her band, and consented to have it removed. She was managed conservatively; however, the following morning she had an increase in leukocytosis despite her benign exam. The relative risks and benefits of diagnostic laparoscopy with possible removal of gastric band and small bowel resection were discussed in detail with the patient. An informed consent obtained. PROCEDURE IN DETAIL: The patient was brought to the operating room and positioned supine on the operating room table. After induction of general, endotracheal anesthesia, the patient was prepared and draped in the usual fashion. Prior to beginning the procedure, a complete timeout was performed with all members of the operative team being present and in agreement. Access to the abdomen was obtained in the right upper quadrant using an optical trocar under direct visualization. The abdomen was insufflated and additional trochars placed under direct visualization. The abdomen was examined and a tight band was noted in the right lower quadrant adjacent to the ileocecal valve. This was lysed sharply. The bowel was run from the ileocecal valve toward the ligament of Treitz. An additional band was noted between the left colon and small bowel mesentery. There is no evidence of obstruction at this point. The remainder of the bowel was run. A large segment of ecchymotic bowel was noted in the ileum. This bowel was of questionable viability, so it was left in place while the rest of the bowel was run. While there was a tight band in the right lower quadrant, given amount of bowel affected, the exact etiology was unable to be determined. Given the presence of gastric band tubing, it was decided to remove the adjustable gastric band. The adjustable gastric band was retracted and the capsule divided with electrocautery. This dissection continued circumferentially until the band could be unbuckled, and removed from the GE junction. The tubing was divided and the band removed from the abdominal cavity. After complete examination of the GE junction, and the remainder of the abdominal cavity, the aforementioned small bowel was reexamined. There was approximately a 15 cm segment that did not appear viable. Given the patient's intestinal distention, a laparoscopic resection did not seem prudent. A small supraumbilical incision was made in the anterior abdominal wall, and the affected small bowel brought through. The bowel was divided using a linear stapler device. The mesentery was divided between ties. A [id number], functional end-to-end anastomosis was created using a linear staple fire. The common enterotomy was closed with 2Vicryl suture in a running fashion. The mesenteric defect was closed with a running 2-0 silk suture. The fascia was closed with 2-0 PDS suture in a running fashion. The band port was able to be accessed through the small celiotomy incision. This was dissected and removed from the anterior abdominal wall, ensuring that all pieces of the adjustable gastric band were removed. The subcutaneous tissues were closed with 2Vicryl suture in a running fashion. The skin was closed with 4-0 Monocryl suture and dressed with skin adhesive dressing. ESTIMATED BLOOD LOSS: Minimal COMPLICATIONS: None INTRAOPERATIVE BLOOD TRANSFUSIONS: None GRAFTS / IMPLANTS: None SPECIMENS: None DISPOSITION: The patient was transported to the postoperative recovery unit in good conditions to be floor when criteria met.
--- NOTE | 2020-05-06 09:32 | PDOC.BPN ---
- Brief Progress Note Doing well s/p removal of adjustable gastric band and small bowel resection. Postoperative pain well controlled with current regimen. Tolerating clear liquid diet, without nausea or vomiting. Denies flatus denies bowel movements. Ambulating independently. EXAM: General: Alert and oriented, no acute distress, resting comfortably Pulmonary: No dyspnea or difficulty breathing CV: Regular rate and rhythm, palpable distal pulses Extremities: No edema Labs and imaging reviewed. PLAN: 75-year-old female with small bowel obstruction status post laparoscopic removal of adjustable gastric band, laparoscopic adhesio lysis, and small bowel resection on May 05, 2020 Advance to regular diet MiraLAX daily for bowel regimen Continue ambulation Management of medical comorbidities per hospitalist service Okay to discharge when cleared by hospitalist service. Follow-up with Dr. Minor prior to leaving for [facility].
--- NOTE | 2020-05-06 11:10 | PDOC.HOSPP ---
- Subjective Encounter Date: 05/06/20 Encounter Time: 08:30 Subjective: Patient seen and examined for SBO. c/o Abd pain - moderate - periumbilical. No N /V. No BM. Tolerated clear liqd yesterday. No new complaints. No overnight events - Objective Vital Signs & Weight: Vital Signs (12 hours) Temp Pulse Resp BP BP Pulse Ox 05/06/20 10:55 98.7 F 69 16 156/76 H 95 05/06/20 08:38 69 167/84 H 05/06/20 07:49 98.4 F 69 16 167/84 H 95 05/06/20 03:05 98.2 F 86 16 161/80 H 97 05/05/20 23:14 97.8 F 87 16 127/76 94 L Weight Weight 152 lb I&O: 05/05/20 05/06/20 05/07/20 06:59 06:59 06:59 Intake Total 2700 Output Total 2300 Balance 400 Result Diagrams: 05/06/20 04:53 05/06/20 04:53 Hospitalist ROS - Review of Systems Respiratory: denies: cough, dry, shortness of breath, hemoptysis, SOB with excertion, pleuritic pain, sputum, wheezing, other Cardiovascular: denies: chest pain, palpitations, orthopnea, paroxysmal noc. dyspnea, edema, light headedness, other - Medication Medications: Active Medications Generic Name Dose Route Start Last Admin Trade Name Freq PRN Reason Stop Dose Admin Acetaminophen 650 mg 05/04/20 07:41 05/06/20 04:16 Tylenol PO 650 mg Q4H PRN Administration Headache/Fever/Mild Pain (1-3) Hydrocodone Bitart/Acetaminophen 1 tab 05/04/20 13:19 05/06/20 08:50 [place] 5/325 PO 1 tab Q6H PRN Administration Moderate Pain (4-6) Potassium Chloride/Dextrose/Sod Cl 1,000 ml in 1,000 mls @ 150 mls/hr 06:15 05/06/20 04:24 D5 1/2 Ns W/10 Meq Kcl IV Not Given .Q6H40M SCOTT Labetalol HCl 10 mg 05/04/20 09:00 05/06/20 08:38 Normodyne SLOW IVP 10 mg BID SCOTT Administration Morphine Sulfate 2 mg 05/04/20 14:39 05/05/20 19:13 Morphine SLOW IVP 05/06/20 13:20 2 mg Q2H PRN Administration Severe Pain (7-10) Multivitamins 1 tab 05/05/20 09:00 05/06/20 08:37 Theragran PO 1 tab DAILY SCOTT Administration Ondansetron HCl 4 mg 05/04/20 07:41 05/05/20 04:22 Zofran IVP 4 mg Q6H PRN Administration Nausea/Vomiting Pantoprazole Sodium 40 mg 05/05/20 09:00 05/06/20 08:37 Protonix IVP 40 mg Q12HR SCOTT Administration Polyethylene Glycol 17 gm 05/06/20 09:00 05/06/20 08:37 Miralax PO 17 gm DAILY SCOTT Administration - Exam General - other findings: Pt in mild distress due to abd pain Heart: RRR, no gallops Respiratory: no wheezes, no rales Gastrointestinal: soft, no guarding, no rigidity, tender to palpation Extremities: no cyanosis, no clubbing Neurological: no new deficit Psychiatric: normal affect, A&O x 3 Hosp A/P - Plan DVT proph w/SCDs SBO -s/p NGT -s/p laparoscopic removal of adjustable gastric band, adhesiolysis, and small bowel resection Tachyarrythmia -on IV Labetalol due to NPO h/o Lap band Chronic alcohol use HTN Anxiety Hypothyroidism PLAN: Reduce IVF to 75 ml/hr Cont IV Morphine for pain control Change PPI to PO DC IV Labetalol 10 mg BID Start PO Toprol, Levothyroxine and Bupropion Ambulate AM labs DC when ok with Gen surg
[2020-05-07] MEDS: Acetaminophen 325 MG TAB PO PRN (00:32)
[2020-05-07] MEDS: D5 1/2 NS w/10 mEq KCl 1,000 ML/1,000 ML BAG IV SCH (03:15)
[2020-05-07] MEDS ORDERED: Levothyroxine Sodium 88 MCG TAB PO SCH (06:00)
[2020-05-07 06:04] LABS: Band 11 % (5-11); Hemoglobin 13.1 g/dL (12.0-16.0); Hypochromia SLIGHT = 6-15 cells (100X) (0-5/hpf); Lymphocytes 16 % (21-51); MDiff Complete? YES; Mean Corpuscular HGB CONC 29.8 g/dL (32.0-36.0); Mean Corpuscular Hemoglobin 29.3 pg (27.0-31.0); Mean Corpuscular Volume 98.5 fL (78.0-98.0); Mean Platelet Volume 8.7 fL (7.4-10.4); Monocytes 12 % (0-10); Neutrophil 61 % (42-75); Platelet Count 183 thou/uL (130-400); Platelet Morphology Comment Appears Adequate; RBC Distribution Width 11.3 % (11.5-14.5); Red Blood Cell (RBC) Count 4.47 mill/uL (4.20-5.40); White Blood Cell (WBC) Count 6.6 thou/uL (4.8-10.8)
[2020-05-07] MEDS: HYDROcodone/Acetaminophen 5/325 mg Tablet PO PRN (06:04)
[2020-05-07 06:25] LABS: ALT (SGPT) 22 U/L (8-55); AST (SGOT) 17 U/L (5-34); Albumin 3.1 g/dL (3.4-4.8); Alkaline Phosphatase 47 U/L (40-110); Anion Gap 9 mmol/L (10-20); BUN (Urea Nitrogen) 9 mg/dL (9.8-20.1); Bilirubin, Total 0.5 mg/dL (0.2-1.2); Calc. Creatinine Clearance 80 mL/min (70-130); Calcium 8.3 mg/dL (7.8-10.44); Carbon Dioxide 28 mmol/L (23-31); Chloride 105 mmol/L (98-107); Estimated GFR-MDRD 86; Globulin 2.4 g/dL (2.4-3.5); Glucose 98 mg/dL (83-110); Phosphorus 2.3 mg/dL (2.3-4.7); Potassium 3.9 mmol/L (3.5-5.1); Protein, Total 5.5 g/dL (6.0-8.3); Sodium 138 mmol/L (136-145)
[2020-05-07 08:30] VITALS: BP 135/74; TEMP 98.6
[2020-05-07] MEDS ORDERED: Bupropion 150 MG XL TAB PO SCH (09:00)
[2020-05-07] MEDS: Multivit, Therapeutic 1 TAB PO SCH (10:35)
[2020-05-07] MEDS: Polyethylene Glycol 3350 17 GM Packet PO SCH (10:35)
--- NOTE | 2020-05-08 07:34 | PQF ---
CLINICAL DOCUMENTATION CLARIFICATION FORM: Dear : Eligio Jimenez Date / Time: 05/06 0732 Please exercise your independent, professional judgment in responding to the clarification form. Clinical indicators are provided on the bottom of this form for your review Final Diagnosis on the Pathology report Acute Serositis Please check appropriate box(es): [x ] Agree w the pathology finding of Acute Serositis [ ] Other explanation of pathology findings (please specify) [ ] Other diagnosis [ ] Unable to determine Physician Signature: Date/Time: For continuity of documentation, please document condition throughout progress notes and discharge summary. Thank You. To be completed by CDI/Coding staff for physician review: Present Clinical Indicators - Signs / Symptoms / Labs Results and Location in Medical Record [X] Acute serositis with inflammation in muscle layer Pathology report 05/06 Dr Eng [X] presented with SBO, she had previously underwent adjustable gastric banding Operative report 05/05 Dr Minor [X] Temp 97/5, Pulse 65, Resp 18, BP 160/79 Vital signs [X] CT of abdomen: edematous loop of small bowel CT of abdomen 05/04 [X] Labs WBC: 05/04=7.9 05/05=15.8 05/06=12.3 Labs 05/04 Present Risk Factors Results and Location in Medical Record [X] Small bowel obstruction Operative report 05/05 Dr Minor [X] Mechanical complication related to adjustable gastric band Operative report 05/05 Dr Minor [X] HTN H&P p1 05/04 Dr Jimenez [X] Chronic alcohol use H&P p1 05/04 Dr Jimenez [X] 75 year-old Female H&P p1 05/04 Dr Jimenez [X] Former Smoker ED Notes 05/04 Present Treatments Results and Location in Medical Record [X] Lap removal of gastric band Operative report 05/05 Dr Minor [X] Small bowel resection Operative report 05/05 Dr Minor [X] Laparoscopic adhesiolysis Operative report 05/05 Dr Minor [X] IV Cefoxitin 2 gm DEC 22 [X] IV Protonix 40 mg DEC 22 [X] CT of abdomen and pelvis Collected 05/04 [X] IVF MAR 05/04 CDS/Security Risk Analyst Signature: Rosalie Pride Phone #: [phone] Date/Time: 05/08/20731 This is a permanent part of the Medical Record [facility]
--- NOTE | 2020-05-08 09:12 | DIS ---
DATE OF ADMISSION: 05/04/2020 DATE OF DISCHARGE: 05/07/2020 DISCHARGE DISPOSITION: Home. FOLLOWUP: 1. Follow up with primary care physician in 1 week. 2. Follow up with General Surgery, Dr. Guillermo Minor in 1 week. ALLERGIES: NO KNOWN DRUG ALLERGIES. THE PATIENT WAS SEEN AND EXAMINED ON THE DAY OF DISCHARGE. DENIES ANY NEW COMPLAINTS. NO CHEST PAIN, SHORTNESS OF BREATH, PALPITATIONS, NAUSEA, OR VOMITING IS REPORTED. BRIEF HOSPITAL COURSE: The patient is a 75-year-old female with lap band in 2006, presented to the emergency room with abdominal discomfort along with nausea and vomiting of 1 day duration. Abdominal pain was in the periumbilical and epigastric region. The pain was worse with eating. Please refer to the history and physical for further details. The patient was admitted to the hospital with a diagnosis of small bowel obstruction. CT scan of the abdomen and pelvis was consistent with distention of the small bowel loops with apparent transition point in the midline of the abdomen. The patient was managed conservatively with NG tube suction. She had a small bowel follow-through that was consistent with bowel obstruction. She underwent laparoscopic removal of the adjustable gastric band with small bowel resection and laparoscopic adhesiolysis. Her abdominal pain has significantly improved. She had some nausea along with abdominal discomfort postprocedure. For this reason, she was monitored overnight. She has done well over the last 24 hours. She has been cleared by General Surgery for discharge. FINAL DIAGNOSES: 1. Abdominal pain with nausea and vomiting secondary to small bowel obstruction. The patient had removal of the adjustable gastric band along with small bowel resection and adhesiolysis. 2. History of tachyarrhythmia, on beta blockers. 3. History of laparoscopic band with subsequent removal this admission. 4. Chronic alcohol use. The patient was counseled. 5. Hypertension. 6. Anxiety. 7. Hypothyroidism. 8. The patient understands the above plan of care. Job ID: [id number]
== END 2020-05-07 12:12 | disposition home or self-care (01) | DRG 326 ==
LOC: ERS 00:38 → SURG A 03:11
PROVIDERS: ADMIT Internal Medicine; ATTEND Internal Medicine
PROC: 0DB80ZZ Excision of Small Intestine, Open Approach (ICD-10-PCS; principal; 2020-05-05)
PROC: 0DP64CZ Removal of Extraluminal Device from Stomach, Percutaneous Endoscopic Approach (ICD-10-PCS; 2020-05-05)
PROC: 0DNC4ZZ Release Ileocecal Valve, Percutaneous Endoscopic Approach (ICD-10-PCS; 2020-05-05)
DX: K95.09 Other complications of gastric band procedure (principal); K65.8 Other peritonitis; K91.32 Postprocedural complete intestinal obstruction; E03.9 Hypothyroidism, unspecified; I10 Essential (primary) hypertension; F41.9 Anxiety disorder, unspecified; F10.10 Alcohol abuse, uncomplicated; F32.9 Major depressive disorder, single episode, unspecified; Y83.8 Other surgical procedures as the cause of abnormal reaction of the patient, or of later complication, without mention of misadventure at the time of the procedure; Z87.891 Personal history of nicotine dependence; Z79.899 Other long term (current) drug therapy; Z79.890 Hormone replacement therapy
CPT/HCPCS: 36415; 74018; 74177; 74250; 80053; 81003; 83605; 83690; 83735; 84100; 85025; 88307; 96374; 96375; C9113; J0694; J1650; J2270; J2405; J2704; J3010; Q9963; Q9967; S0020